=== PATIENT | female | born 1990 | race African-American/Black ===

== ENCOUNTER 2021-12-06 10:11 | Emergency (ER) | payer MEDICAID ==
[~2021-12-06] VITALS: Ht 167.6 cm; Wt 58.0 kg
[2021-12-06 10:33] VITALS: BP 110/76
[2021-12-06 11:07] LABS: BASOPHILS % 0.4 % (0.0-2.0); EOSINOPHILS % 1.9 % (0.0-5.0); HEMOGLOBIN. 13.9 g/dL (12.0-16.0); LYMPHOCYTES % 41.6 % (20.0-50.0); MEAN CORPUSCULAR HEMOGLOBIN 27.5 pg (28.0-32.0); MEAN CORPUSCULAR VOLUME 85.3 fL (81.0-99.0); MEAN PLATELET VOLUME 8.5 fl (7.4-10.4); MONOCYTES % 7.2 % (2.0-8.0); NEUTROPHILS % 48.9 % (40.0-76.0); PLATELET 200 x1000/uL (130-400); RED BLOOD CELL COUNT 5.03 mill/uL (4.2-5.4); RED CELL DISTRIBUTION WIDTH 13.5 % (11.6-14.6)
[2021-12-06 11:16] LABS: CHLORIDE 106 mEq/L (98-107)
[2021-12-06 11:17] LABS: HCG SCREEN NEGATIVE
[2021-12-06 11:51] LABS: CLARITY URINE CLEAR (CLEAR); COLOR URINE YELLOW (YELLOW); KETONES URINE NEGATIVE (NEGATIVE); LEUKOCYTE ESTERASE URINE TRACE (NEGATIVE); NITRITE URINE NEGATIVE (NEGATIVE); OCCULT BLOOD URINE NEGATIVE (NEGATIVE); PH URINE 7.5 (4.5-8.0); PROTEIN URINE NEGATIVE (NEGATIVE); SPECIFIC GRAVITY URINE 1.015 (1.005-1.030); UROBILINOGEN URINE 0.2 E.U./dL (0.2-1.0)
== END 2021-12-06 15:25 | disposition home or self-care (01) ==
LOC: ER 10:11
DX: N83.291 Other ovarian cyst, right side (principal)
CPT/HCPCS: 36415; 74176; 76856; 80053; 81003; 81025; 84703; 85025; 99284

== ENCOUNTER 2023-03-28 08:04 | Emergency (ER) | payer BC, MEDICAID ==
[~2023-03-28] VITALS: Ht 167.6 cm; Wt 60.7 kg
[2023-03-28 08:08] VITALS: O2SAT 100
[2023-03-28 09:25] LABS: BASOPHILS % 0.9 % (0.0-2.0); EOSINOPHILS % 1.7 % (0.0-5.0); HEMOGLOBIN. 13.9 g/dL (12.0-16.0); LYMPHOCYTES % 44.5 % (20.0-50.0); MEAN CORPUSCULAR HEMOGLOBIN 27.8 pg (28.0-32.0); MEAN CORPUSCULAR HGB CONC 33.1 g/dL (31.0-37.0); MEAN CORPUSCULAR VOLUME 84.1 fL (81.0-99.0); MEAN PLATELET VOLUME 8.9 fl (7.4-10.4); MONOCYTES % 5.5 % (2.0-8.0); NEUTROPHILS % 47.4 % (40.0-76.0); PLATELET 272 x1000/uL (130-400); RED BLOOD CELL COUNT 4.99 mill/uL (4.2-5.4); WHITE BLOOD COUNT 5.3 x1000/uL (4.5-11.0)
[2023-03-28 09:44] LABS: CHLORIDE 106 mEq/L (98-107); INDEX HEMOLYSI 1 (1-3); INDEX ICTERIC 1 (1-4); INDEX LIPEMIC 1 (1-3); POTASSIUM 3.4 mEq/L (3.5-5.1); SODIUM 135 mEq/L (136-145)
[2023-03-28 10:01] LABS: ALANINE AMINOTRANSFERASE 28 IU/L (13-61); ALBUMIN 3.8 g/dL (3.4-5.0); ASPARTATE AMINOTRANSFERASE 14 IU/L (15-37); BILIRUBIN TOTAL 0.3 mg/dL (0.1-1.0); CALCIUM 8.8 mg/dL (8.5-10.1); CARBON DIOXIDE 28 mEq/L (21-32); CREATININE 0.7 mg/dL (0.6-1.3); GLUCOSE 90 mg/dL (70-105); PROTEIN TOTAL 7.8 g/dL (6.0-8.3); T4 FREE 0.82 ng/dL (0.76-1.46); THYROID STIMULATING HORMONE 0.42 uIU/mL (0.36-3.74); UREA NITROGEN BLOOD 7 mg/dL (7-21)
[2023-03-28 10:55] VITALS: BP 109/75; PULSE 66; RESP 20; TEMP 98.6
== END 2023-03-28 10:56 | disposition home or self-care (01) ==
LOC: ER 08:04
DX: E07.9 Disorder of thyroid, unspecified (principal)
CPT/HCPCS: 36415; 76536; 80053; 81025; 84439; 84443; 85025; 99284

== ENCOUNTER 2023-05-17 07:34 | Emergency (ER) | payer MEDICAID ==
[~2023-05-17] VITALS: Ht 162.6 cm; Wt 75.0 kg
[2023-05-17 08:07] VITALS: O2SAT 98
[2023-05-17 08:12] VITALS: TEMP 97.9
[2023-05-17 08:45] VITALS: BP 109/69; PULSE 82; RESP 16
[2023-05-17] MEDS ORDERED: IBUPROFEN 600MG TABLET PO ONE (08:45)
[2023-05-17] MEDS ORDERED: METH-653 MT ×2 (08:47)
== END 2023-05-17 09:06 | disposition home or self-care (01) ==
LOC: ER 07:34
DX: M54.50 Low back pain, unspecified (principal)
CPT/HCPCS: 81025; 99283

== ENCOUNTER 2025-01-14 11:24 | Emergency (ER) | payer MEDICAID ==
[~2025-01-14] VITALS: Ht 167.6 cm; Wt 58.0 kg
[~2025-01-14 11:24] MED LIST: METH-653 MT
[2025-01-14 11:42] VITALS: O2SAT 99
[2025-01-14 12:48] LABS: BASOPHILS % 1.1 % (0.0-2.0); EOSINOPHILS % 1.9 % (0.0-5.0); HEMATOCRIT. 44.5 % (36.0-48.0); HEMOGLOBIN. 14.7 g/dL (12.0-16.0); LYMPHOCYTES % 46.6 % (20.0-50.0); MEAN PLATELET VOLUME 9.5 fl (7.4-10.4); MONOCYTES % 6.9 % (2.0-8.0); NEUTROPHILS % 43.5 % (40.0-76.0); PLATELET 225 x1000/uL (130-400); RED BLOOD CELL COUNT 5.13 mill/uL (4.2-5.4); RED CELL DISTRIBUTION WIDTH 13.7 % (11.6-14.6)
[2025-01-14 13:08] LABS: CREATININE 0.9 mg/dL (0.6-1.0); UREA NITROGEN BLOOD 10 mg/dL (9-23)
[2025-01-14 13:23] LABS: HCG SCREEN NEGATIVE
[2025-01-14 14:59] VITALS: BP 117/87; PULSE 76; RESP 16; TEMP 36.7; O2SAT 100
== END 2025-01-14 15:00 | disposition home or self-care (01) ==
LOC: ER 11:24
DX: D25.9 Leiomyoma of uterus, unspecified (principal); N92.1 Excessive and frequent menstruation with irregular cycle
CPT/HCPCS: 36415; 76856; 80048; 81025; 84703; 85025; 86850; 86900; 99284